=== PATIENT | female | born 1985 | race Two or more races ===

== ENCOUNTER 2018-11-12 10:07 | Emergency (ER) | payer SELFPAY ==
[~2018-11-12] VITALS: Ht 167.6 cm; Wt 46.7 kg
[2018-11-12] MEDS ORDERED: SODIUM CHLORIDE 0.9% 1,000 ML IV ONE (11:56)
[2018-11-12] MEDS ORDERED: KETOROLAC TROMETH 30 MG/ML 1ML VIAL IV ONE (12:00)
[2018-11-12] MEDS ORDERED: ONDANSETRON HCL 4 MG/2 ML VIAL IV ONE (12:00)
[2018-11-12] MEDS ORDERED: CLINDAMYCIN 600MG IV 50 ML IV ONE (12:00)
[2018-11-12 13:26] LABS: Basophils # (auto) 0.1 uL; Basophils % (auto) 0.8 % (0.0-2.0); Eosinophils # (auto) 0.1 uL; Eosinophils % (auto) 0.5 % (0.0-7.0); Lymphocytes # (auto) 1.9 uL; Lymphocytes % (auto) 14.2 % (10.0-50.0); Mean Corpuscular Hemoglobin 29.3 pg (28.0-32.0); Mean Corpuscular Hgb Conc. 33.3 g/dL (32.0-36.0); Mean Corpuscular Volume 88.1 fL (80.0-100.0); Monocytes # (auto) 1.1 uL; Monocytes % (auto) 8.2 % (0.0-12.0); Neutrophils % (auto) 76.3 % (37.0-80.0); Nucleated Red Blood Cells % 0.1 %; Platelet Count (auto) 246 10^3/uL (140-450); Red Cell Distribution Width 12.8 % (11.8-14.3); White Blood Cell 13.2 10^3/uL (4.4-10.8)
[2018-11-12 13:44] LABS: Albumin 4.1 g/dL (3.4-5.0); Calcium 8.8 mg/dL (8.5-10.1); Potassium 4.4 mmol/L (3.5-5.1)
[2018-11-12 13:48] LABS: BUN/Creatinine Ratio 17.2; Total Protein 7.9 g/dL (6.4-8.2)
[2018-11-12 14:32] VITALS: BP 103/69
== END 2018-11-12 14:39 | disposition home or self-care (01) ==
LOC: ER 10:07 → EDBD 10:07 → ER 14:39
DX: J02.9 Acute pharyngitis, unspecified (principal); J45.909 Unspecified asthma, uncomplicated; F17.210 Nicotine dependence, cigarettes, uncomplicated
CPT/HCPCS: 36415; 80053; 85025; 94761; 96365; 96375; 99283; J1885; J2405; J3490